=== PATIENT | male | born 1995 | race Two or more races ===

== ENCOUNTER 2021-02-28 01:19 | Emergency (ER) | payer MEDICAID, OTHER ==
[~2021-02-28] VITALS: Ht 172.7 cm; Wt 74.4 kg
--- NOTE | 2021-02-28 01:32 | NUR ---
PT BIBSELF C/O MID ABD PAIN, VOMITING X1 DAY AND CONSTIPATION. PT AAOX4 BREATHING EVENLY AND UNLABORED. PER PT, HIS LAST BM WAS 3DAYS AGO. PT ATTACHED TO MONITOR AND POX. MD AT BEDSIDE. PT GIVEN BLANKET AND CALL LIGHT WITHIN REACH
[2021-02-28] MEDS ORDERED: ONDANSETRON HCL/PF 4 MG/2 ML VIAL ONE (01:37)
--- NOTE | 2021-02-28 01:48 | NUR ---
BLOOD COLLECTED AND SENT TO LAB.
[2021-02-28 01:53] LABS: BASOPHILS % (AUTO) 0.2 % (0.0-2.0); EOSINOPHILS % (AUTO) 0.5 % (0.0-6.0); HEMATOCRIT 44 % (39-51); HEMOGLOBIN 14.7 g/dL (13.5-17.5); LYMPHOCYTES # (AUTO) 1.1 K/uL (0.8-4.8); MEAN CORPUSCULAR HGB CONC 33 g/dl (31.0-36.0); MEAN CORPUSCULAR VOLUME 84 fL (80-96); MONOCYTES # (AUTO) 0.8 K/uL (0.1-1.30); MONOCYTES % (AUTO) 7.7 % (2.0-12.0); NEUTROPHILS # (AUTO) 8.7 K/uL (1.8-8.9); NEUTROPHILS % (AUTO) 81.6 % (43.0-81.0); PLATELET COUNT (AUTO) 215 K/uL (150-450); RED BLOOD CELL COUNT(AUTO) 5.26 MIL/uL (4.5-6.0); WHITE BLOOD COUNT (AUTO) 10.6 K/uL (4.3-11.0)
[2021-02-28] MEDS ORDERED: IV NS 0.9% 1,000 ML BAG IV ONE (02:00)
[2021-02-28] MEDS ORDERED: ONDANSETRON HCL/PF 4 MG/2 ML VIAL IVP ONE (02:00)
[2021-02-28] MEDS ORDERED: SENN1TAB6 PO (03:12)
[2021-02-28] MEDS ORDERED: SENNOSIDES/DOCUSATE SODIUM 1 TAB TABLET PO SCH (03:30)
[2021-02-28] MEDS ORDERED: SENNOSIDES/DOCUSATE SODIUM 1 TAB TABLET ONE (03:35)
--- NOTE | 2021-02-28 03:43 | NUR ---
Patient does not wish to proceed with medical care recommended by Dr. Gil. Patient given information related to possible complications, up to and including , which could occur as a result of leaving the hospital at this time. Patient verbalizes understanding of risks involved due to leaving against medical advice. Patient has signed AMA form. IV removed. Catheter intact and site benign. Pressure and 4x4 applied to site. No bleeding noted. Pt ambulatory with a steady gait
--- NOTE | 2021-02-28 03:43 | NUR ---
stk med pulled. medication not on ed floor
[2021-02-28 03:46] LABS: CALCIUM, SERUM 8.5 mg/dL (8.5-10.1); CREATININE 0.9 mg/dL (0.6-1.3); POTASSIUM 3.8 mmol/L (3.5-5.1)
[2021-02-28 03:48] VITALS: BP 127/70
[2021-02-28 03:51] LABS: ALBUMIN 4.2 g/dL (3.4-5.0); BILIRUBIN,DIRECT 0.1 mg/dL (0.0-0.2); BILIRUBIN,TOTAL 0.6 mg/dL (0.2-1.0); TOTAL PROTEIN, SERUM 7.8 g/dL (6.4-8.2)
[2021-02-28 04:49] LABS: BILIRUBIN,URINE SMALL (NEGATIVE); COLOR,URINE YELLOW (YELLOW); LEUKOCYTE ESTERASE ,URINE NEGATIVE (NEGATIVE); NITRITE, URINE NEGATIVE (NEGATIVE); PROTEIN,URINE TRACE mg/dl (NEGATIVE); UGLUCOSE NEGATIVE (NEGATIVE)
[2021-02-28 05:16] LABS: RBC,URINE NONE SEEN /HPF (0-2); WBC,URINE 0-2 /HPF (0-3)
[2021-02-28 05:17] LABS: BACTERIA,URINE None seen /HPF (None Seen); MUCUS,URINE Few /LPF (None Seen); SQUAMOUS EPITHELIAL CELL,UR Rare /HPF (None Seen)
== END 2021-02-28 03:43 | disposition left against medical advice (07) ==
LOC: ER 01:20
DX: R10.33 Periumbilical pain (principal); K59.00 Constipation, unspecified
CPT/HCPCS: 36415; 74176; 80048; 80076; 81001; 83690; 85025; 87086; 96361; 96374; 99284; J2405; J7030